=== PATIENT | female | born 1980 | race Caucasian/White ===

== ENCOUNTER 2016-08-29 11:37 | Emergency (ER) | payer OTHER ==
[~2016-08-29] VITALS: Ht 172.7 cm; Wt 98.2 kg
[~2016-08-29 11:37] MED LIST: AMLO10TA3 PO; AMPH30TA3 PO; CITA20TA11 PO; GABA-502 PO; KLO5T PO; OMEP40CA36 PO
[2016-08-29 11:41] VITALS: BP 135/90; PULSE 95; RESP 16; O2SAT 99
[2016-08-29 12:33] LABS: Mean Corpuscular Hemoglobin 26.9 pg (27.0-35.0); Mean Corpuscular Volume 83.8 fL (81-100)
--- NOTE | 2016-08-29 15:34 | ED.REPORT ---
HPI- Female Date of Service Aug 29, 2016 ED Provider: Vishal Gimenez MD Pt is a 36 y/o female w/ a hx of HTN, polycystic ovaries, endometriosis, presenting to the ED c/o waxing and waning vaginal bleeding onset 16 days ago. She noted that her bleeding was somewhat waxing and waning and has developed into brown discharge, throbbing left-sided pelvic pain, chills, mild fatigue, intermittent mild orthostatic lightheadedness. Her pain today is similar to previous ovarian cysts. She denies nausea, vomiting, fever, dysuria, flank pain. She is not on any hormone or anticoagulation therapy at current time. Nursing Notes Stated Complaint: VAGINAL BLEEDING/16 DAYS Chief Complaint: Female Abdominal Pain Nursing Notes Reviewed: Yes (inMotionNow, Meetrics not reconciled) Allergies: Coded Allergies: latex (Verified Allergy, Intermediate, skin irritation, 08/29/16) codeine (Verified Allergy, Unknown, 08/29/16) hydrocodone (Verified Allergy, Unknown, 08/29/16) Scheduled Amlodipine (Amlodipine) 10 Mg Tablet 10 MG PO DAILY Amphet Asp/Amphet/D-Amphet (Adderall) 30 Mg Tablet 30 MG PO DAILY Citalopram (Citalopram) 20 Mg Tablet 40 MG PO DAILY Gabapentin (Gabapentin) 300 Mg Capsule 300 MG PO HS Omeprazole (Omeprazole) 40 Mg Capsule.dr 40 MG PO DAILY Scheduled PRN Clonazepam (Clonazepam) 0.5 Mg Tablet 0.5 MG PO TID PRN PRN For Anxiety General Time Seen by MD: 15:32 Chief Complaint Vaginal bleeding... Hx Obtained From: Patient Arrived By: Walk-in Sudden in Onset?: No Onset Occurred: More than a week ago... (2 weeks) Symptom Duration: Since onset Quality: Painful (left pelvic) Severity: Current: Mild Severity: Maximum: Moderate Past Medical History Past Medical History Vicente's esophagus Polycystic ovarian syndrome Endometriosis Reports: Hypertension Past Surgical History anthony fundoplication Tests post EGD and colonoscopy July 2016 Multiple D&Cs Smoking History Never Smoker Social History Alcohol Use: "Social" Drug Use: Denies drug use Other Social History: Ambulatory Status Independent Review of Systems Constitutional: Reports: Chills, Denies: Fever GI: Denies: Abdominal pain, Nausea, Vomiting Female: Reports: Pelvic pain, Vaginal bleeding - abnl, Vaginal discharge, Denies: Dysuria, Flank pain Neurologic: Reports: Lightheaded Complete sys rev & neg: except as marked. Physical Exam Initial Vital Signs Vital Signs (First) Date Time Temp Pulse Resp B/P Pulse Ox O2 Delivery O2 Flow Rate FiO2 08/29/16 11:41 37.1 95 16 135/90 99 Room Air Initial VS: Reviewed, Vital signs normal Head / Eyes: Atraumatic, Normocephalic, PERRL ENT: Mucous membranes moist, Conjunctiva normal, No scleral icterus Neck: Supple, Full range of motion Respiratory: Breath sounds normal, Clear to auscultation, No respiratory distress Cardiovascular: Regular rate & rhythm, Heart sounds normal, Intact distal pulses Extremities: Vascular intact, Neuro intact, No swelling, No tenderness Skin: Warm, Dry, No cyanosis Neurologic: Alert, Oriented, Nonfocal Psychiatric: Mood/affect normal, Behavior normal, Normal thought content Female Genitourinary: Exam deferred General/Constitutional: Awake, Alert, No acute distress, Well appearing, Well hydrated, Well nourished, Cooperative, Not toxic appearing Abdomen: Atraumatic, Soft, Non-tender, McBurney's non-tender, No guarding, No rebound, No distention, No palpable mass Interpretation & Diagnostics Lab Results Interpretation Result Diagram: 08/29/16 1215 08/29/16 1215 Test 08/29/16 12:15 08/29/16 15:32 White Blood Count 8.3th/mm3 (3.8-10.1) Red Blood Count 5.06mil/mm3 (3.90-5.20) Hemoglobin 13.6g/dL (12.0-15.6) Hematocrit 42.4% (35.0-46.0) Mean Corpuscular Volume 83.8fL (81-100) Mean Corpuscular Hemoglobin 26.9pg (27.0-35.0) Mean Corpuscular Hemoglobin Concent 32.1% (32.0-37.0) Red Cell Distribution Width 14.2% (12.3-15.4) Platelet Count 343bil/L (150-400) Sodium Level 139mEq/L (134-144) Potassium Level 4.3mEq/L (3.5-5.2) Chloride Level 104mEq/L (97-108) Carbon Dioxide Level 24mmol/L (18-29) Blood Urea Nitrogen 10mg/dL (6-20) Creatinine 0.79mg/dL (0.57-1.00) Estimat Glomerular Filtration Rate 118mL/min (>59) Glucose Level 113mg/dL (60-99) Calcium Level 8.6mg/dL (8.5-10.1) Total Bilirubin 0.3mg/dL (0.0-1.2) Aspartate Amino Transf (AST/SGOT) 14U/L (0-50) Alanine Aminotransferase (ALT/SGPT) 12U/L (0-32) Alkaline Phosphatase 82U/L (25-150) Total Protein 6.9g/dL (6.4-8.4) Albumin 3.9g/dL (3.4-5.0) Hold Cervantes Top Tube Received (Received) Hold Urine Received (Received) Lab Results Interpretation: Urine : Negative CBC normal neck sign CMP normal US Focused OB IMPRESSION: 1. Ill-defined appearance of the endometrial complex and there is central cystic change present. Findings are nonspecific and short-term followup pelvic ultrasound is recommended in 6-12 weeks to assess for interval change. 2. Normal appearance of the ovaries. Dictated by: Aditya Neff RRA Interpreted: Anne Vivas MD on 08/29/2016 at 17:00 Transcribed by: KAM on 08/29/2016 at 17:00 Exam Performed by: [facility] Exam Type: Diagnostic Exam Interpreted by: Radiologist Re-Eval/Medical Decision Med Decision/Clinical Course This is a 36-year-old female with polycystic ovary history who presents complaining of 16 days continuous vaginal bleeding. She has had problems with very irregular and heavy bleeding in the past, but not for a number of years. She also reports some left-sided pelvic Pain and believes she may have ovarian cyst. However she does not want any medications. She has had recent upper endoscopy was some mild gastropathy, so is trying to avoid NSAIDs. 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 She has normal vitals, soft nontender abdomen. She is not orthostatic. Blood work reveals no anemia. Pelvic ultrasound reveals no clear ovarian cyst, there is a semi-complex structure in the endometrium, the radiologist recommends repeat ultrasound in 6 weeks. I discussed options with the patient, is negative, she has anovulatory bleeding, reasonable option is a tapered course of OCPs, patient's couple of this and is being discharged on this. She did receive a dose of Tylenol in an apartment. She reports she does want any additional medications. Routine precautions are reviewed. She is discharged in improved condition. Source of Hx: Old records Re-Evaluation/Progress : Time of Eval: 17:28 Re-Evaluation/Progress Note: Pt rechecked. Discussed imaging results. Informed pt of plan for treatment. Pt understands and agrees with plan for treatment. F/U and RTER warnings given. All questions addressed. Differential Diagnosis: Positive: Vaginal bleeding, Negative: , complete, Active labor, premature, Discomfort of , Ectopic preg, ruptured, Ectopic , Third trimester bleeding, Tubo-ovarian abscess Counseled Regarding: Diagnosis, Lab results, Need for follow-up, When/why to return to ED Discharge & Departure Impression: Primary Impression: Vaginal bleeding Additional Impression: Pelvic pain Disposition: Home Discharge Condition All VS Reviewed: Yes Condition: Stable Referrals: [facility] (PCP) [place] Attestation Portions of this note were transcribed by Ricardo Gloria. I, Dr. Gimenez personally performed the history, physical exam and medical decision-making; I reviewed and confirmed the accuracy of the information in the transcribed note. Signed by Ventura Mcleod, 08/29/16 - 1600 copies to: [facility] Vishal Gimenez MD Aug 29, 2016 15:34 RICARDO GLORIA Aug 29, 2016 15:44
--- NOTE | 2016-08-29 17:10 | DRSVH ---
PROCEDURE: US PELVIC SONOGRAM + TRANSVAGINAL SONOGRAM INDICATIONS: L pelvic pain, bleeding, ho PCOS TECHNIQUE: Real-time scanning was performed of the pelvic organs, with image documentation. Additional endovagi nal scanning was necessary due to incomplete visualization of the adnexal and endometrial structures by transabdominal scanning. COMPARISON: None. FINDINGS: (orthogonal measurements) Uterus size: 9.1 x 4.4 x 4.5 cm. Endometrium thickness: Ill-defined borders. Right ovary size: 2.7 x 1.3 x 2.8 cm. Left ovary size: 2.3 x 1.9 x 2.4 cm. Transabdominal scanning: Limited scanning through the kidneys shows no hydronephrosis. No pathologi c free abdominal or pelvic fluid. Endovaginal scanning: Uterus: Uterus is normal in size and appearance. Endometrium is ill defined and appears to have rashid tral cystic changes present. Ovaries: Within normal physiologic limits. IMPRESSION: 1. Ill-defined appearance of the endometrial complex and there is central cystic change present. Fin dings are nonspecific and short-term followup pelvic ultrasound is recommended in 6-12 weeks to asses s for interval change. 2. Normal appearance of the ovaries. Dictated by: Aditya REILLY Interpreted: Anne Vivas MD on 08/29/2016 at 17:00 Transcribed by: KAM on 08/29/2016 at 17:00 Approved by: Anne Vivas M.D. on 08/29/2016 at 17:41
[2016-08-29 18:45] VITALS: BP 135/90; PULSE 95; RESP 16; O2SAT 99
[2016-10-10] MEDS ORDERED: AMPH30TA3 PO (17:20)
[2016-10-10] MEDS ORDERED: KLO5T PO (17:20)
[2016-10-10] MEDS ORDERED: AMLO10TA3 PO (17:20)
[2016-10-10] MEDS ORDERED: CITA40TA13 PO (17:20)
[2016-10-10] MEDS ORDERED: GABA-502 PO (17:21)
[2016-10-10] MEDS ORDERED: DEXL30CA3 PO (17:21)
== END 2016-08-29 18:46 | disposition home or self-care (01) ==
LOC: SED 11:37
DX: N93.9 Abnormal uterine and vaginal bleeding, unspecified (principal); R10.2 Pelvic and perineal pain; I10 Essential (primary) hypertension; E28.2 Polycystic ovarian syndrome; Z87.42 Personal history of other diseases of the female genital tract; Z88.5 Allergy status to narcotic agent

== ENCOUNTER 2016-10-15 05:36 | Day surgery (SDC) | payer OTHER ==
[~2016-10-15] VITALS: Ht 172.7 cm; Wt 98.0 kg
[2016-10-15] VITALS (8 sets, daily range): BP systolic 120–141; BP diastolic 70–88; PULSE 99–113; RESP 14–24; O2SAT 92–97
[~2016-10-15 05:36] MED LIST changes: -CITA20TA11 PO; +CITA40TA13 PO; +DEXL30CA3 PO; +Lactated Ringer's 1,000 ML IV SCH; -OMEP40CA36 PO; +levoFLOXacin Inj 500 MG in IV Premix 1 EACH IV SCH
[2016-10-15] MEDS ORDERED: fentaNYL-PF 50 mCg/mL 2 mL Inj ONE (05:37)
[2016-10-15] MEDS ORDERED: Ondansetron 2 mg/mL 2 mL Inj ONE (05:37)
[2016-10-15] MEDS ORDERED: Neostigmine 1 mg/mL 10 mL Inj ONE (05:37)
[2016-10-15] MEDS ORDERED: Phenylephrine/NS 100 mCg/mL 10 mL Syringe IVPUSH ONE (05:37)
[2016-10-15] MEDS ORDERED: Propofol 10,000 mCg/mL 20 mL Inj ONE (05:37)
[2016-10-15] MEDS ORDERED: Rocuronium 10 mg/mL 5 mL Inj ONE (05:37)
[2016-10-15] MEDS ORDERED: Lidocaine PF 1% 30 mL Inj ONE (05:37)
[2016-10-15] MEDS ORDERED: Succinylcholine Chloride 20 mg/mL 5 mL Inj ONE (05:37)
[2016-10-15] MEDS ORDERED: Dexamethasone 4 mg/mL Inj ONE (05:37)
[2016-10-15] MEDS ORDERED: EPHEDrine/NS 5 mg/mL 5 mL Syringe ONE (05:37)
[2016-10-15] MEDS ORDERED: levoFLOXacin 500 mg/100 mL D5W Premix IV ONE (05:47)
[2016-10-15] MEDS ORDERED: Lactated Ringer's 1,000 ML IV ONE (06:28)
--- NOTE | 2016-10-15 07:16 | PCM.HPANE ---
Patient Data Surgeon Admitting Provider: Attending Provider:Divina Vallejo MD Primary Care Physician:Abena Other Provider:Staci Garber Anesthesia Reason for Visit Biliary Dyskinesia Ht/WT & BMI Height (Feet): 5 Height (Inches): 8 Weight (Kilograms): 97.97 Body Mass Index 32.00 Allergies Coded Allergies: latex (Verified Allergy, Intermediate, skin irritation, 08/29/16) codeine (Verified Allergy, Unknown, 08/29/16) hydrocodone (Verified Allergy, Unknown, 08/29/16) Past Anesthesia History Anesthesia History: Denies:: Anesthesia Reactions, Fam Anesthesia Reaction, Fam Malignant Hypertherm, Malignant Hyperthermia Diabetes History Hx Diabetes?: No MRSA MRSA: No Medications Hypertension Medication: Yes Home Meds Incl Beta Trevon: No Active Scripts Polyethylene Glycol 3350 (Miralax)17 Gm Powd.pack17 Gm PO DAILY #30 Prov:Divina Vallejo MD 10/15/16 oxyCODONE 5 Mg Tablet5 Mg PO Q4H PRN For Moderate Pain #30 TABLET Prov:Divina Vallejo MD 10/15/16 Reported Medications Omeprazole Magnesium (Prilosec Otc)20 Mg Tablet.dr40 Mg PO DAILY #1 PKG Ref 0 10/15/16 Gabapentin 300 Mg Tdmmvgh231 Mg PO DAILY Ref 0 10/10/16 Clonazepam 0.5 Mg Tablet0.5 Mg PO TID PRN For Anxiety Ref 0 10/10/16 Citalopram 40 Mg Fnraaw27 Mg PO DAILY 30 Days Ref 0 10/10/16 Amlodipine 10 Mg Bzqszy05 Mg PO DAILY Ref 0 10/10/16 Amphet Asp/Amphet/D-Amphet (Adderall)30 Mg Kyvbge60 Mg PO DAILY Ref 0 10/10/16 Discontinued Reported Medications Dexlansoprazole ER (Dexilant)30 Mg Otimobz48 Mg PO DAILY Ref 0 10/10/16 Gabapentin 300 Mg Ciwlnsg916 Mg PO HS Ref 0 07/19/16 Omeprazole 40 Mg Capsule.dr40 Mg PO DAILY Ref 0 07/18/16 Clonazepam 0.5 Mg Tablet0.5 Mg PO TID PRN For Anxiety Ref 0 07/18/16 Citalopram 20 Mg Pqjngc53 Mg PO DAILY Ref 0 07/18/16 Amlodipine 10 Mg Njzpfo17 Mg PO DAILY Ref 0 07/18/16 Amphet Asp/Amphet/D-Amphet (Adderall)30 Mg Hmoeue98 Mg PO DAILY Ref 0 07/18/16 Last Time Dose Received Takes clonazepam 1-2 times/dd Took prilosec and amlodipine today History HEENT History: Positive for:: Dysphagia (hx of stricture/ dilations r/t barretts) Hx of Heart Problems?: Yes Cardiovascular History: Positive for:: Hypertension Denies:: Congestive Heart Failure Pacemaker Hx of Respiratory Problem?: No Respiratory History: Denies:: Asthma COPD Dyspnea Oxygen Administration Tuberculosis Use of C-PAP Machine Neurological History: Denies:: CVA Headaches Multiple Sclerosis Parkinson's Disease Seizures Other History/Comments anxiety and on chronic bzd's Hx of GI Problems?: Yes Gastrointestinal History: Positive for:: Gall Bladder Disease (current admission problem) Gastroesphageal Reflux (hx of barretts/ strictures/ dilations) Hiatal Hernia (hx of lap Miah) Hx of Problems?: No Female Hx: Denies:: Currently Hx Musculoskeletal Problems?: Yes Musculoskeletal History: Positive for:: Fibromyalgia Denies:: Joint Replacement Psycho Social History: Positive for:: Anxiety (PTSD) Hx Depression Hx Surgeries?: Yes (BILAT ARMS, C-SECT, MULT LAPS, MIAH FUNDOPLICATION) Hx Any Other Health Problems?: Yes Other History: Denies:: Thyroid Disease Hx Diabetes: No Hx Alcohol Use: NoHx Substance Use: No Smoking Status: Current Every Day Smoker Stop/Bang S-Snoring: Do You Snore Loudly: No T-Tired: feel tired, fatigued: Yes O-Obsered: Observed not breath: No P-Blood Pressure: treated: Yes B- Body Mass Index > 35 kg/m2: No A- Age over 50: No N- Neck Large Circumference: No G- Gender Male: No MARIO Total Score: 2 Risk Assessment Category Category 1A: Patient has history of documented sleep apnea, and HAS NOT received any narcotic, sedative or anesthesia administration during this stay. Category 1B: Patient has history of documented sleep apnea, and HAS received any narcotic , sedative or anesthesia administration during this stay Category 2: Patient has SUSPECTED Obstructive Sleep Apnea, and HAS received any narcotic , sedative or anesthesia administration during this stay. Category 3: Patient has SUSPECTED Obstructive Sleep Apnea and HAS NOT received narcotic, sedative or anesthesia administration during this stay. Category 4: Outpatient in Procedural Areas with known sleep apnea or who screen positive for High Risk via the STOP/BANG questionnaire. Exam Exam Vital Signs Vital Signs Date Time Temp Pulse Resp B/P Pulse Ox O2 Delivery O2 Flow Rate FiO2 10/15/16 06:11 107 17 138/88 97 Room Air General Appearance: Alert, Oriented X3 HEENT/AIRWAY: MP 2, Neck Movement (FROM) Lungs: Clear to Auscultation, Clear to Percussion Heart: Exam Unremarkable, Regular Rate/Rhythm Meds/Labs/Diagnostics Admission Meds Current Medications Gabapentin (Neurontin) 600 mg PREOP ONCE PO Last administered on 10/15/16 06: 29; Start 10/15/16 at 06:00; Stop 10/15/16 at 06:01; Status DC Celecoxib (CeleBREX) 200 mg PREOP ONCE PO Last administered on 10/15/16 06:29 ; Start 10/15/16 at 06:00; Stop 10/15/16 at 06:01; Status DC Scopolamine (Transderm-Scop Patch) 1.5 mg ONCE ONCE TOPICAL Last administered on 10/15/16 06:29; Start 10/15/16 at 05:00; Stop 10/15/16 at 05:01; Status DC Acetaminophen 1000 mg 1,000 mg PREOP ONCE PO Last administered on 10/15/16 06: 29; Start 10/15/16 at 06:00; Stop 10/15/16 at 06:01; Status DC Lactated Ringer's (Lr) 1,000 ml @ ud STK-MED ONCE IV Last administered on 06:28; Start 10/15/16 at 06:28; Stop 10/15/16 at 06:29; Status DC Plan Impression Patient chart reviewed, patient interviewed and anesthestic plan with risks, benefits, and alternatives discussed, and informed consent obtained. NPO Status: 10/14@0830w food, 10/15 @ 0400 ASA Physical Status: ASA3 Severe Disease (anxiety on chronic bzd's) Anesthetic Plan: GA Bene/Risks/Altern/Consents: Yes HP Complete Prior to Induction: Yes Rene Stroud MD Oct 15, 2016 07:16
[2016-10-15] MEDS ORDERED: OXYC5TAB72 PO (07:21)
[2016-10-15] MEDS ORDERED: POLY17PO6 PO (07:21)
[2016-10-15] MEDS ORDERED: OMEP20TA24 PO (07:24)
[2016-10-15] MEDS ORDERED: Bupivacaine-MPF 0.5% 30 mL Inj INFILTRATE ONE (08:01)
[2016-10-15] MEDS ORDERED: Lactated Ringer's 500 ML IV PRN (08:08)
[2016-10-15] MEDS ORDERED: Lactated Ringer's 1,000 ML IV SCH (08:08)
[2016-10-15] MEDS ORDERED: Phenylephrine 10,000 mCg/mL Inj IVPUSH PRN (08:10)
[2016-10-15] MEDS ORDERED: Ondansetron 2 mg/mL 2 mL Inj IVPUSH PRN (08:10)
[2016-10-15] MEDS ORDERED: fentaNYL-PF 50 mCg/mL 2 mL Inj IVPUSH PRN (08:10)
[2016-10-15] MEDS ORDERED: HYDROmorphone 1 mg/mL Inj IVPUSH PRN (08:10)
[2016-10-15] MEDS ORDERED: EPHEDrine Sulfate 50 mg/mL Inj IVPUSH PRN (08:10)
[2016-10-15] MEDS ORDERED: Labetalol 5 mg/mL 4 mL Inj IV PRN (08:10)
[2016-10-15] MEDS ORDERED: MetoCLOpramide 5 mg/mL 2 mL Inj IVPUSH PRN (08:10)
[2016-10-15] MEDS ORDERED: Atropine 0.4 mg/mL Inj IVPUSH PRN (08:10)
[2016-10-15] MEDS ORDERED: Polyethylene Glycol (PEG) 17 Gm Powder PO SCH (08:30)
--- NOTE | 2016-10-15 09:09 | PCM.SURGPO ---
Immediate Operative Note Date of Surgery: Oct 15, 2016 Pre Operative Diagnosis Biliary Dyskinesia Post Operative Diagnosis Biliary Dyskinesia Procedure Lap Cholecystectomy with Cholangiogram Surgeon and Jewel Stringer Surgeon: Divina Vallejo MD Assistants: Albertina Saleh, HARPER Mendoza MS3 Findings No stones, Normal Cholangiogram Complications There were no periprocedural complications identified. Surgical Specimen Removed: Yes Specimen sent to Pathology: Yes Surgical Specimen description: Gallbladder Anesthetic Administered: GA Grafts, Implants: None Output, Estimated Blood Loss: 5 Blood Admin during surgery: No Attending Statement Front Desk Representative listed was medically necessary for the successful completion of the case Divina Vallejo MD Oct 15, 2016 09:09
--- NOTE | 2016-10-15 09:49 | DRSVH ---
PROCEDURE: X-RAY OPERATIVE CHOLANGIOGRAM ([id number]) INDICATIONS: BILIARY DYSKINESIA COMPARISON: [facility], [place], [place] HIDA SCAN W CCK STD, 07/03/2016, 9:05. [facility] pital, [place], US ABDOMEN, 04/11/2016, 18:55. FINDINGS: Biliary ducts: The surgeon injected contrast into the biliary ducts after cannulation of the cystic duct stump. Visualized intra- and extrahepatic bile ducts are normal in caliber, without strictures. No intraluminal filling defects to suggest retained ductal stones or sludge. No evidence for iatro genic ductal injury. Duodenum: Contrast flows promptly through the sphincter of Oddi into the duodenum, which appears nor mal in caliber. IMPRESSION: Normal operative cholangiogram. Dictated by: Aditya REILLY Interpreted: Mary Anne Heller MD on 10/15/2016 at 9:48 Transcribed by: CALLIE on 10/15/2016 at 9:49 Approved by: Mary Anne Heller M.D. on 10/15/2016 at 11:28
--- NOTE | 2016-10-15 09:55 | OP ---
[address] [address] OPERATIVE REPORT PATIENT: TIANA SAVAGE : 1980 MR#: [id number] ADMIT: 10/15/2016 JOB ID: [id number] DATE OF SURGERY: 10/15/2016 PREOPERATIVE DIAGNOSIS(ES): Biliary dyskinesia. POSTOPERATIVE DIAGNOSIS(ES): Biliary dyskinesia. PROCEDURE PERFORMED: Laparoscopic cholecystectomy with intraoperative cholangiogram. SURGEON: Divina Vallejo MD BRAILLE OPERATOR: POLA Ruiz, MS3 INDICATIONS: The patient is a 36-year-old lady who has had abdominal symptoms for the last 15 years. She has had a Miah fundoplication in the past and has been under antireflux medications. She has moved from [place] to the [facility], and has been under the care of one of our desilverizer, Dr. Galdamez, who performed an upper and lower endoscopy, and obtained a HIDA scan. HIDA scan showed decreased gallbladder ejection fraction, prompting a surgical referral. After discussing the risks, benefits, and alternatives, she is here today for laparoscopic cholecystectomy with intraoperative cholangiogram. PROCEDURE DETAILS: She was placed in supine position. Underwent smooth induction of general anesthesia. Abdomen was prepped and draped in the usual sterile fashion. Surgical time-out was undertaken using safety checklist, and all were in agreement. I began by making a supraumbilical incision, entered the abdomen using a combination of open Malika technique and Optiview trocars. After obtaining pneumoperitoneum, I placed three additional 5 mm ports, one in the epigastrium and two in the right upper quadrant. I accessed the umbilical supraumbilical port to a 12. After that, I retracted the gallbladder cephalad and to the right, and dissected the triangle of Calot anteriorly and posteriorly. Then, divided the cystic artery between clips and the cystic duct I clipped on the specimen side and obtained intraoperative cholangiogram which showed normal anatomy without any evidence of filling defects. I then clipped the cystic duct doubly on the patient's side and divided it. I then dissected the gallbladder free from the liver bed, with good hemostasis, placed it in an EndoCatch bag and removed it through the umbilical port site. I suctioned all fluid and bile from the right upper quadrant, irrigated and suctioned it free. After that, I desufflated the abdomen, removed the ports and closed the supraumbilical port site with [id number] 0-Vicryl suture. The skin was reapproximated with 4-0 Monocryl. Steri-Strips and sterile dressing were applied. The patient was recovered from anesthesia and was taken to the recovery room in stable condition. NEGRITO
--- NOTE | 2016-10-15 10:16 | PCM.ANEP2 ---
Post Anesthesia Evaluation ASA/CMS Post Anesthesia VS in Patient's Normal Range?: Yes Resp Stable; Airway Patent?: Yes CV Function & Hydration Stable: Yes Mental Status Recovered?: Yes Pain control Satisfactory?: Yes N/V Control Satisfactory?: Yes Rene Stroud MD Oct 15, 2016 10:16
--- NOTE | 2016-10-15 10:16 | PCM.ANEP1 ---
Post Anesthesia Phase 1 PACU Phase 1 Assessment Date of Service: Oct 15, 2016 Vital Signs Vital Signs Date Time Temp Pulse Resp B/P Pulse Ox O2 Delivery O2 Flow Rate FiO2 10/15/16 09:48 37.1 99 19 130/85 93 Room Air 10/15/16 09:40 99 24 130/85 92 Room Air 10/15/16 09:30 103 15 129/81 93 Room Air 10/15/16 09:25 106 17 120/70 94 Room Air 10/15/16 09:20 111 18 136/87 96 Room Air 10/15/16 09:15 110 14 141/83 96 Simple Mask 8 10/15/16 09:14 37.1 113 14 135/83 96 Simple Mask 8 10/15/16 06:11 107 17 138/88 97 Room Air Anesthetic Administered: GA Level of Alertness: Awake, talking ROMO's with Equal Strength: Yes Pain: No Nausea or Vomiting: No Oxygen Delivery: Simple Mask Lungs: Clear to Auscultation, Clear to Percussion Rene Stroud MD Oct 15, 2016 10:15
--- NOTE | 2016-10-16 12:49 | PATH ---
SURGICAL PATHOLOGY Attending Physician:Divina Vallejo MD CASE STATUS: Signed Out PATIENT NAME: TIANA SAVAGE PID: [id number] : 1980 DATE COLLECTED:10/15/2016 16:38 SPECIMEN: Gallbladder CLINICAL HISTORY: BILIARY DYSKINESIA 1). GALLBLADDER FINAL DIAGNOSIS: 1.GALLBLADDER: MILD CHRONIC CHOLECYSTITIS, APPARENTLY ACALCULOUS. No evidence of malignancy. ICD10 code K81.1 GROSS DESCRIPTION: The specimen is received in one formalin filled container labeled with the patient's name, sublabeled "gallbladder" and consists of a slightly opened 6.0 x 3.0 x 1.0 CM gallbladder. The serosa is smooth. The wall is 0.2-0.3 CM in thickness. The mucosa is a dark green torres in color. The lumen contains a light green mucoid material. No calculus are noted. 5 business center representative sections are submitted in one cassette. 10/15/2016 DAC MICRO DESCRIPTION: See diagnosis. ICD-9 CODES: CPT CODES: 1: 64236 Electronically Signed Out Silverio Yeung MD [facility] [address], [place] [address] Technical component performed at [facility], [facility] [address], [place], [address]
== END 2016-10-15 23:59 | disposition home or self-care (01) ==
LOC: SAS 05:36
PROVIDERS: ATTEND Student in an Organized Health Care Education/Training Program
DX: K81.1 Chronic cholecystitis (principal); I10 Essential (primary) hypertension; K21.9 Gastro-esophageal reflux disease without esophagitis; K22.70 Barrett's esophagus without dysplasia; K22.2 Esophageal obstruction; F43.10 Post-traumatic stress disorder, unspecified; M79.7 Fibromyalgia; L40.9 Psoriasis, unspecified; K27.9 Peptic ulcer, site unspecified, unspecified as acute or chronic, without hemorrhage or perforation; N93.8 Other specified abnormal uterine and vaginal bleeding; F17.210 Nicotine dependence, cigarettes, uncomplicated
CPT/HCPCS: 47563; 74300; 88304; J0330; J1100; J2250; J2370; J2405; J2710; J3010; J7120; Q9967

== ENCOUNTER 2017-02-13 18:35 | Emergency (ER) | payer OTHER ==
[~2017-02-13] VITALS: Ht 172.7 cm; Wt 97.7 kg
[~2017-02-13 18:35] MED LIST changes: -DEXL30CA3 PO; -Lactated Ringer's 1,000 ML IV SCH; +OMEP20TA24 PO; +OXYC5TAB72 PO; +POLY17PO6 PO; -levoFLOXacin Inj 500 MG in IV Premix 1 EACH IV SCH
[2017-02-13 18:53] VITALS: BP 132/90; PULSE 104; RESP 18; O2SAT 100
--- NOTE | 2017-02-13 20:39 | ED.REPORT ---
HPI-General Illness Date of Service Feb 13, 2017 ED Provider: Lefty Vila MD Patient is a 36 year old female with a history of Vicente's esophagus, PCOS, and hypertension who presents to the ED complaining of sinus pressure/ congestion that began 2 weeks ago. Recent associated symptoms include sinus pressure, nasal congestion, non-productive cough, chest discomfort secondary to congestion, abdominal pain secondary to cough, dental pain, subjective fever, and bilateral ear pain.The pain in her chest is exacerbated by movement. Her symptoms have become increasingly worse and she presents to the ED this evening because her symptoms have become unbearable. She has taken Tylenol with no relief. Nursing Notes Stated Complaint: COUGH/LEFT EAR PAIN Chief Complaint: FLU/Cold Symptoms Nursing Notes Reviewed: Yes Allergies: Coded Allergies: latex (Verified Allergy, Intermediate, skin irritation, 08/29/16) levofloxacin (Verified Allergy, Intermediate, 10/15/16) REDNESS AND ITCHINESS IN RIGHT ARM. codeine (Verified Allergy, Unknown, 08/29/16) hydrocodone (Verified Allergy, Unknown, 08/29/16) Scheduled Amlodipine (Amlodipine) 10 Mg Tablet 10 MG PO DAILY Amphet Asp/Amphet/D-Amphet (Adderall) 30 Mg Tablet 45 MG PO DAILY Citalopram (Citalopram) 40 Mg Tablet 40 MG PO DAILY Fluconazole (Diflucan) 150 Mg Tablet 150 MG PO ONCE Gabapentin (Gabapentin) 300 Mg Capsule 300 MG PO DAILY Omeprazole Magnesium (Prilosec Otc) 20 Mg Tablet.dr 40 MG PO DAILY Polyethylene Glycol 3350 (Miralax) 17 Gm Powd.pack 17 GM PO DAILY Scheduled PRN Clonazepam (Clonazepam) 0.5 Mg Tablet 0.5 MG PO TID PRN PRN For Anxiety Pseudoephedrine (Pseudoephedrine) 30 Mg/5 Ml Liquid 30 MG PO DAILY PRN PRN For Congestion oxyCODONE (oxyCODONE) 5 Mg Tablet 5 MG PO Q4H PRN PRN For Moderate Pain General Time Seen by MD: 20:38 Chief Complaint Other (Facial Pressure) Hx Obtained From: Patient Arrived By: Walk-in Sudden in Onset?: No Onset Occurred: More than a week ago... (2 weeks) Symptom Duration: Since onset Location: : Face Quality: Pressure Radiation: : Does not radiate Severity: Current: Moderate Severity: Maximum: Moderate Associated with: Reports: Abdominal pain, Chest pain, Congestion, Cough, Nasal discharge Pertinent Negative: Pt denies other symptoms Recent Healthcare: No recent doctor visit, No recent hospitalization Past Medical History Past Medical History Vicente's esophagus Polycystic ovarian syndrome Endometriosis Reports: Hypertension Past Surgical History anthony fundoplication Tests post EGD and colonoscopy July 2016 Multiple D&Cs Smoking History Never Smoker Social History Alcohol Use: "Social" Drug Use: Denies drug use Other Social History: , Local resident Ambulatory Status Independent Review of Systems Diffuse dental pain Full Review of Systems Constitutional: Reports: Fever (subjective) Ears / Nose / Throat: Reports: Earache bilateral, Nasal congestion, Sinus problem (facial pressure) Respiratory: Reports: Non-productive cough Cardiovascular: Reports: Chest pain GI: Reports: Abdominal pain Neurologic: Reports: Headache Complete sys rev & neg: except as marked. Physical Exam Vital Signs Vital Signs Date Time Temp Pulse Resp B/P Pulse Ox O2 Delivery O2 Flow Rate FiO2 02/13/17 22:03 85 20 138/99 100 Room Air 02/13/17 18:53 36.4 104 18 132/90 100 Room Air Initial VS: Reviewed Neck: Supple, Non-tender, Full range of motion Extremities: Vascular intact, Neuro intact, No swelling, No tenderness Skin: Warm, Dry, No cyanosis Neurologic: Alert, Oriented, Nonfocal Psychiatric: Mood/affect normal, Behavior normal, Normal thought content General/Constitutional: Awake, Alert, No acute distress Head / Eyes: Atraumatic, Normocephalic, PERRL ENT: Atraumatic, Airway patent, Mucous membranes moist, Pharynx NL, Tympanic membs NL, Ext aud canal NL Sinus: Positive: Tender maxillary L, Tender maxillary R Respiratory / Chest: Atraumatic, Breath sounds NL, Breath sounds = bilat, No respiratory distress Cardiovascular: Heart rate NL, Regular rhythm, Heart sounds NL, No gallop, No murmurs, No rubs Abdomen: Atraumatic, Soft, Non-tender, No guarding, No rebound Re-Eval/Medical Decision Med Decision/Clinical Course Patient presents to emergency department complaining of sinus pain/pressure, congestion for the last 2 weeks. She reports that she is borderline diabetic but diet controlled. Here in the emergency department she is afebrile, hemodynamically stable and in no apparent distress. Overall presentation is consistent with sinusitis. No evidence of peritonsillar or retropharyngeal abscess. She does nontoxic in appearance. Lungs are clear to auscultation. Given duration of symptoms and borderline diabetic I will treat her with a course of Augmentin. I have prescribed Sudafed for relief of sinus pressure and advised her to take ibuprofen and use a neti pot.Prior to discharge follow- up and return precautions were reviewed in detail with the patient who verbalized understanding and agreement with the plan. The patient was discharged in stable condition. Time of Eval: 23:37 Patient Status: Condition improved Re-Evaluation/Progress Note: Patient is rechecked. She is informed of her likely diagnosis. All questions about the intended treatment plan are addressed. She understands and agrees with the plan. Counseled Regarding: Diagnosis, Need for follow-up, When/why to return to ED Discharge & Departure Primary Impression: Sinusitis Sinusitis location: maxillary Chronicity: acute Recurrence: non-recurrent Qualified Code: J01.00 - Acute maxillary sinusitis, unspecified Additional Impression: Nasal congestion Disposition: Home Discharge Condition All VS Reviewed: Yes Condition: Improved Patient Instructions: Sinusitis (ED) Additional Instructions: Thank you for seeking care at emergency room. It is difficult for us to make definitive diagnoses in the ED but we believe that you are experiencing sinusitis. Our primary goal today in the ED was to evaluate you for any life-threatening conditions. Your evaluation was reassuring. You will be discharged with a prescription for pseudoephedrine. This should help relieve the pressure in your sinus. Take the full course of Augmentin as directed. Take Diflucan as directed for yeast infection. You should follow-up with your primary doctor in the next week. You should return to the ED immediately if you develop fevers, vomiting, cough , shortness of breath, chest pain, lightheadedness, weakness or any other concerning signs or symptoms. Thank you for letting us partake in your care today. Referrals: [facility] [place] Attestation Portions of this note were transcribed by Tomeka Dumont. I, Dr. Vila personally performed the history, physical exam and medical decision-making; I reviewed and confirmed the accuracy of the information in the transcribed note. Signed by: [place] Alexandre, 02/13/17 [id number]. copies to: [facility] Lefty Vila MD Feb 13, 2017 20:39 TOMEKA DUMONT Feb 13, 2017 21:31
[2017-02-13] MEDS ORDERED: FLUC150T48 PO (21:34)
[2017-02-13] MEDS ORDERED: PSEU30SY2 PO (21:34)
[2017-02-13 22:03] VITALS: BP 138/99; PULSE 85; RESP 20; O2SAT 100
[2017-02-14] MEDS ORDERED: _Amoxicillin-Clavulanate 875-125 mg Tablet PO SCH (08:30)
== END 2017-02-13 22:04 | disposition home or self-care (01) ==
LOC: SED 18:35
DX: J01.00 Acute maxillary sinusitis, unspecified (principal); R09.81 Nasal congestion; I10 Essential (primary) hypertension; Z88.1 Allergy status to other antibiotic agents; Z88.5 Allergy status to narcotic agent; Z91.040 Latex allergy status

== ENCOUNTER 2017-03-04 17:39 | Emergency (ER) | payer OTHER ==
[~2017-03-04] VITALS: Ht 172.7 cm; Wt 93.6 kg
[~2017-03-04 17:39] MED LIST changes: +FLUC150T48 PO; +PSEU30SY2 PO
[2017-03-04 17:59] VITALS: BP 128/82; PULSE 98; RESP 16; O2SAT 98
--- NOTE | 2017-03-04 18:54 | DRSVH ---
PROCEDURE: X-RAY RIGHT ANKLE, MINIMUM THREE VIEWS ([id number]) INDICATIONS: 36 year-old female with diffuse right ankle pain, without known injury. TECHNIQUE: 3 views of the ankle were acquired. COMPARISON: None. FINDINGS: Bones: No acute fractures or dislocations. There is small irregular calcification just anterior to the distal tibial plafond on the lateral projection. Ankle mortise is normally aligned. No suspiciou s bony lesions. Soft tissues: No tibiotalar joint effusion. Achilles tendon appears normal. IMPRESSION: Small nonacute nonunited avulsion fracture from the anterior distal tibial plafond, versu s small posttraumatic heterotopic ossification. The Dictated by: Dieter Stephens M.D. on 03/04/2017 at 18:51 Approved by: Dieter Stephens M.D. on 03/04/2017 at 18:53
--- NOTE | 2017-03-04 19:22 | ED.REPORT ---
HPI-Extremity Problem Lower Date of Service Mar 04, 2017 ED Provider: Chad Ho History of Present Illness: 36yo female with R ankle pain sice awaking this morning. She denies any trauma. Pain is sharp and anterior R ankle. Non-radiating, worse with movement. Nursing Notes Stated Complaint: RIGHT BROKEN ANKLE Chief Complaint: Extremity Trauma Nursing Notes Reviewed: Yes Allergies: Coded Allergies: latex (Verified Allergy, Intermediate, skin irritation, 03/04/17) levofloxacin (Verified Allergy, Intermediate, 03/04/17) REDNESS AND ITCHINESS IN RIGHT ARM. codeine (Verified Allergy, Unknown, 03/04/17) hydrocodone (Verified Allergy, Unknown, 03/04/17) quetiapine (Verified Allergy, Unknown, Unknown, 03/04/17) Scheduled Amlodipine (Amlodipine) 10 Mg Tablet 10 MG PO DAILY Amphet Asp/Amphet/D-Amphet (Adderall) 30 Mg Tablet 45 MG PO DAILY Citalopram (Citalopram) 40 Mg Tablet 40 MG PO DAILY Fluconazole (Diflucan) 150 Mg Tablet 150 MG PO ONCE Gabapentin (Gabapentin) 300 Mg Capsule 300 MG PO DAILY Omeprazole Magnesium (Prilosec Otc) 20 Mg Tablet.dr 40 MG PO DAILY Polyethylene Glycol 3350 (Miralax) 17 Gm Powd.pack 17 GM PO DAILY Scheduled PRN Clonazepam (Clonazepam) 0.5 Mg Tablet 0.5 MG PO TID PRN PRN For Anxiety Pseudoephedrine (Pseudoephedrine) 30 Mg/5 Ml Liquid 30 MG PO DAILY PRN PRN For Congestion oxyCODONE (oxyCODONE) 5 Mg Tablet 5 MG PO Q4H PRN PRN For Moderate Pain oxyCODONE-Acetaminophen 5-325 mg (oxyCODONE-Acetaminophen 5-325 mg) 1 Each Tablet 1 TAB PO Q6H PRN PRN For Pain General Time Seen by MD: 19:09 Chief Complaint Ankle injury right no trauma Hx Obtained From: Patient Arrived By: Wheelchair Onset Occurred: 9 - 12 hours ago Symptom Duration: Since onset Quality: Sharp Severity: Current: Moderate Severity: Maximum: Moderate Associated with: Denies: Chest pain, Difficulty breathing, Fever, Heel pain, Unable to bear weight, Unable to walk Pertinent Negative: Pt denies other symptoms Exacerbated by: Movement Relieved by: Rest Recent Healthcare: Recent doctor visit Similar Sx Previous: No Risk-Extremity Prob Lower Well's Criteria for DVT Well's DVT Score: 0 pts (low risk 5%) Past Medical History Past Medical History Vicente's esophagus Polycystic ovarian syndrome Endometriosis Reports: Hypertension Past Surgical History anthony fundoplication Tests post EGD and colonoscopy July 2016 Multiple D&Cs Smoking History Never Smoker Social History Alcohol Use: "Social" Drug Use: Denies drug use Other Social History: , Local resident Ambulatory Status Independent Review of Systems Constitutional: Denies: Chills, Fever Musculoskeletal: Reports: Joint pain Respiratory: Denies: Shortness of breath Cardiovascular: Denies: Chest pain GI: Denies: Abdominal pain Physical Exam Initial Vital Signs Vital Signs (First) Date Time Temp Pulse Resp B/P Pulse Ox O2 Delivery O2 Flow Rate FiO2 03/04/17 17:59 36.4 98 16 128/82 98 Room Air Initial VS: Vital signs normal Right Ankle: Positive: ROM reduced, Swelling present... (Mild), Tenderness present... (Moderate), Negative: Achilles deficit, Anterior drawer test pos, Ecchymosis present, Erythema present, Neuro deficit present General/Constitutional: Awake, Alert, No acute distress, Not toxic appearing Respiratory / Chest: Breath sounds NL, Breath sounds = bilat, No respiratory distress Cardiovascular: Heart rate NL, Regular rhythm, Heart sounds NL Abdomen: Soft, Non-tender Interpretation & Diagnostics X-Ray Interpretation Xray Interpretation: Patient Name: TINAA SAVAGE MR#: [id number] [place] [facility] [place] [facility] Date of Service: 03/04/17 1802 PROCEDURE: X-RAY RIGHT ANKLE, MINIMUM THREE VIEWS ([id number]) INDICATIONS: 36 year-old female with diffuse right ankle pain, without known injury. TECHNIQUE: 3 views of the ankle were acquired. COMPARISON: None. FINDINGS: Bones: No acute fractures or dislocations. There is small irregular calcification just anterior to the distal tibial plafond on the lateral projection. Ankle mortise is normally aligned. No suspicious bony lesions. Soft tissues: No tibiotalar joint effusion. Achilles tendon appears normal. IMPRESSION: Small nonacute nonunited avulsion fracture from the anterior distal tibial plafond, versus small posttraumatic heterotopic ossification. The Dictated by: Dieter Stephens M.D. on 03/04/2017 at 18:51 Approved by: Dieter Stephens M.D. on 03/04/2017 at 18:53 Procedures Splint Post-Application Eval Extremity Condition: Cap refill < 2 sec Re-Eval/Medical Decision Med Decision/Clinical Course X-ray reviewed with Dr. Burns who advises splint/crutches/pain meds and podiatry follow up. Pt. reports she cannot tolerate crutches due to previous carpal tunnel release. Placed in splint and advised no weight bearing. Follow up with podiatry in 2-3 days. Pt. has tolerated Percocet in past despite allergies listed in chart Discharge & Departure Impression: Primary Impression: Closed right ankle fracture Encounter type: initial encounter Qualified Code: S82.891A - Other fracture of right lower leg, initial encounter for closed fracture Disposition: Home Patient Instructions: Ankle Fracture (ED) Additional Instructions: Wear splint until seen by podiatry. Avoid any weight bearing. Take pain meds as needed for acute pain. Return to ER if anything worsens. Referrals: Freddie Garvey DPJunie 2-3 days recheck EDSupervising Provider for APC: Jet Burns Christopher R PAC Mar 04, 2017 19:22
[2017-03-04] MEDS ORDERED: OXYC1TAB24 PO (19:29)
[2017-03-04] MEDS ORDERED: oxyCODONE-Acetamin 5-325 mg Tablet PO ONE (19:30)
[2017-03-04 20:13] VITALS: BP 131/91; PULSE 99; O2SAT 100
== END 2017-03-04 20:14 | disposition home or self-care (01) ==
LOC: SED 17:39
DX: S82.891A Other fracture of right lower leg, initial encounter for closed fracture (principal); X58.XXXA Exposure to other specified factors, initial encounter; Y92.9 Unspecified place or not applicable; Y93.9 Activity, unspecified; Y99.9 Unspecified external cause status; I10 Essential (primary) hypertension; Z88.1 Allergy status to other antibiotic agents; Z88.5 Allergy status to narcotic agent; Z88.8 Allergy status to other drugs, medicaments and biological substances